=== PATIENT | male | born 1960 | race Caucasian/White ===

== ENCOUNTER → 2017-09-02 | Day surgery (SDC) | payer OTHER ==
[~2017-09-02] MED LIST: CELEBREX100 MG PO; FENTANYL CITRATE/PF 100MCG/2 ML INJ ONE; MIDAZOLAM HCL 2 MG/2 ML VIAL ONE; OR PHACO EYE KIT ONE; PREOP PHACO EYE KIT ONE
== END | disposition home or self-care (01) ==
LOC: OR 10:46
PROVIDERS: ATTEND Ophthalmology
DX: H25.12 Age-related nuclear cataract, left eye (principal); M19.90 Unspecified osteoarthritis, unspecified site; K21.9 Gastro-esophageal reflux disease without esophagitis
CPT/HCPCS: 66984; J2250

== ENCOUNTER → 2018-02-12 | Day surgery (SDC) | payer OTHER ==
[~2018-02-12] MED LIST changes: +GLUCAGON FOR INJ 1 MG VIAL ONE; +KETAMINE HCL INJ 50 MG/ML 10 ML VIAL ONE; +LIDOCAINE HCL 2% LOCAL INJ 5 ML SDV VIAL INJ ONE; +NEXIUM20 MG PO; -OR PHACO EYE KIT ONE; -PREOP PHACO EYE KIT ONE; +PROPOFOL IV EMULSION 10 MG/ML 50 ML VIAL ONE; +TESTOSTERO100 MG/1 M INJ
--- NOTE | 2018-02-12 14:32 | Operative Report ---
DATE OF PROCEDURE: February 12, 2018 REFERRING PHYSICIAN: Dr. Tien Gonzalez. PROCEDURE PERFORMED: Esophagogastroduodenoscopy with biopsies and colonoscopy with biopsies. INDICATIONS FOR ESOPHAGOGASTRODUODENOSCOPY: History of heartburn, indigestion. INDICATIONS FOR COLONOSCOPY: Colorectal cancer screening. MEDICATION: Patient was done under MAC. Please see anesthesiologist's note. PROCEDURE: Patient in left lateral decubitus position. Flexible fiberoptic Olympus gastroscope was introduced into the esophagus under direct visualization without any difficulty. There were some patchy erythema noted in distal esophagus. Minute tongues of velvety red mucosa were noted to extend proximally from the GE junction. Biopsies were obtained to rule out Nathan's. The scope was then advanced with ease into the stomach. Mucosa overlying the antrum and the body reveals a patchy erythema and [id number] edema. Biopsies were obtained and sent to stain for H. pylori. The pylorus was of normal contour and shape, was intubated with ease and the scope was advanced all the way to the second portion of the duodenum. The scope was then withdrawn slowly. Mucosa overlying the proximal second portion and the duodenal bulb appeared to be within normal limits. The scope was then withdrawn back into the stomach in retroflexion. Mucosa overlying the fundus and the cardia appeared to be within normal limits. The scope was then withdrawn back into the stomach and retroflexion mucosa overlying the fundus appeared to be within normal limits. A minute nodule was noted in the cardia that was biopsied. The scope was then straightened out. Stomach was decompressed. Scope was subsequently withdrawn. Patient tolerated the procedure well. IMPRESSION 1. Distal esophagitis. 2. Rule out Nathan's esophagus. 3. Nodule, cardia, biopsied. 4. Gastritis biopsied. Biopsies sent to stain for Helicobacter pylori. PLAN: Follow up histology. Initiate Protonix 40 mg 1 p.o. q.a.m. a.c. Patient was then turned around. After adequate lubrication of the anal canal, flexible fiberoptic Olympus colonoscope was inserted into the rectum with ease and advanced all the way to the cecum. Mucosa overlying the cecum appeared to be within normal limits. The ileocecal valve was intubated and the scope was advanced into the terminal ileum. The terminal ileum was ulcerated and biopsies were obtained. Also, an approximately 3 to 4 mm nodule was noted just proximal to the ileocecal valve and that was biopsied. The scope was then withdrawn back into the colon. It was then withdrawn slowly. Mucosa overlying the ascending and the transverse grossly appeared to be within normal limits. There were some patchy inflammatory changes noted in the left colon. Random biopsies were obtained. The scope was then retroflexed into the distal rectum. Small internal hemorrhoids were noted, none of which was actively bleeding. The scope was then straightened out. It was subsequently withdrawn. Patient tolerated procedure well. IMPRESSION 1. Ulcerated terminal ileum, biopsied. 2. Nodule, terminal ileum, biopsied. 3. Mild patchy left-sided colitis. 4. Small internal hemorrhoids, none actively bleeding. PLAN: Follow up histology. Check IBD panel. Check CRP and check sed rate. Job#: [id number] BRIAN cc:DR. TIEN GONZALEZ
== END | disposition home or self-care (01) ==
LOC: OR 08:43
PROVIDERS: ATTEND Internal Medicine Gastroenterology
DX: Z12.11 Encounter for screening for malignant neoplasm of colon (principal); K29.50 Unspecified chronic gastritis without bleeding; K51.50 Left sided colitis without complications; K21.0 Gastro-esophageal reflux disease with esophagitis; K31.89 Other diseases of stomach and duodenum; K22.8 Other specified diseases of esophagus; K64.8 Other hemorrhoids; K63.89 Other specified diseases of intestine; L40.50 Arthropathic psoriasis, unspecified; R03.0 Elevated blood-pressure reading, without diagnosis of hypertension; E34.9 Endocrine disorder, unspecified; Z01.810 Encounter for preprocedural cardiovascular examination; Z68.32 Body mass index [BMI] 32.0-32.9, adult; Z86.711 Personal history of pulmonary embolism; Z96.643 Presence of artificial hip joint, bilateral
CPT/HCPCS: 36415; 43239; 45380; 85651; 86140; 86256; 86671; 93005; J1610; J2001; J2250; 45378

== ENCOUNTER → 2021-04-12 | Day surgery (SDC) | payer OTHER ==
[~2021-04-12] MED LIST changes: +BENICAR20 MG PO; +BUPIVACAINE 0.25% 30ML SDV ONE; -FENTANYL CITRATE/PF 100MCG/2 ML INJ ONE; -GLUCAGON FOR INJ 1 MG VIAL ONE; -KETAMINE HCL INJ 50 MG/ML 10 ML VIAL ONE; +LIDOCAINE 1% W/EPINEPHRINE 20 ML VIAL ONE; +LIDOCAINE HCL 2% JELLY 5 ML TUBE ONE; -LIDOCAINE HCL 2% LOCAL INJ 5 ML SDV VIAL INJ ONE; -MIDAZOLAM HCL 2 MG/2 ML VIAL ONE; +PANTOPRAZOLE SO40 MG PO; -PROPOFOL IV EMULSION 10 MG/ML 50 ML VIAL ONE
[2021-04-12 13:50] VITALS: BP 127/71
== END | disposition home or self-care (01) ==
LOC: OR 08:24
PROVIDERS: ATTEND Surgery
DX: K60.5 Anorectal fistula (principal); I10 Essential (primary) hypertension
CPT/HCPCS: 46270; J2001

== ENCOUNTER 2022-03-01 08:56 | Emergency (ER) | payer BC, OTHER ==
[~2022-03-01] VITALS: Ht 180.3 cm; Wt 108.9 kg
[~2022-03-01 08:56] MED LIST changes: -BUPIVACAINE 0.25% 30ML SDV ONE; -LIDOCAINE 1% W/EPINEPHRINE 20 ML VIAL ONE; -LIDOCAINE HCL 2% JELLY 5 ML TUBE ONE
[2022-03-01] MEDS ORDERED: ONDANSETRON HCL INJ 2MG/ML 2ML 2 MG/ML VIAL IV STA (09:10)
[2022-03-01] MEDS ORDERED: SODIUM CHLORIDE FLUSH 10 ML SYR IV PRN (09:15)
[2022-03-01 09:20] LABS: BASOPHILS % 0.5 % (0.0-1.0); EOSINOPHILS # (AUTO) 0.1 (0.0-0.4); EOSINOPHILS % 0.7 % (0.0-6.0); HEMATOCRIT 42.1 % (38.2-49.6); HEMOGLOBIN 13.7 g/dL (14.0-18.0); LYMPHOCYTES # (AUTO) 0.7 (1.0-3.2); LYMPHOCYTES % 9.7 % (18.0-39.1); MEAN CORPUSCULAR HEMOGLOBIN 29.5 pg (28-32); MEAN CORPUSCULAR HGB CONC 32.5 g/dL (31-35); MEAN CORPUSCULAR VOLUME 90.7 fL (81-99); MONOCYTES # (AUTO) 0.6 (0.2-0.8); MONOCYTES % 8.6 % (4.4-11.3); NEUTROPHILS % 80.1 % (38.7-80.0); PLATELET COUNT 222 x10e3/uL (140-360); RED BLOOD COUNT 4.64 x10e6/uL (4.3-5.7); RED CELL DISTRIBUTION WIDTH 12.6 % (11.7-14.4)
[2022-03-01 09:46] LABS: ALBUMIN 3.9 g/dL (3.5-5.0); ALBUMIN/GLOBULIN RATIO 1.1 (0.8-2.0); ANION GAP 14.3 mmol/L (8-16); CALCIUM 9.4 mg/dL (8.4-10.2); CREATININE, SERUM 1.28 mg/dL (0.72-1.25); POTASSIUM 4.3 mmol/L (3.5-5.1)
[2022-03-01] MEDS ORDERED: SODIUM CHLORIDE 0.9% 1000ML 1,000 ML IV ONE (10:15)
[2022-03-01] MEDS ORDERED: ALTEPLASE 50 MG/VIAL (29 MILLION IU) IV ONE ×2 (10:15)
[2022-03-01] MEDS ORDERED: IOPAMIDOL 370 MG/ML 100 ML INFUS..BTL INJ ONE (11:45)
[2022-03-01] MEDS ORDERED: SODIUM CHLORIDE 0.9% 100 ML ONE ×2 (11:45→11:52)
[2022-03-01 12:03] LABS: INR 0.88; PROTHROMBIN TIME 12.8 seconds (11.9-14.5)
[2022-03-01 12:04] LABS: PARTIAL THROMBOPLASTIN TIME 27.3 seconds (23.8-35.5)
[2022-03-01 12:43] VITALS: BP 174/77
== END 2022-03-01 12:46 | disposition other institution (70) ==
LOC: ER 09:10
DX: R55 Syncope and collapse (principal); I63.9 Cerebral infarction, unspecified; S80.812A Abrasion, left lower leg, initial encounter; W01.0XXA Fall on same level from slipping, tripping and stumbling without subsequent striking against object, initial encounter; Y93.01 Activity, walking, marching and hiking; Y92.89 Other specified places as the place of occurrence of the external cause; I10 Essential (primary) hypertension; K21.9 Gastro-esophageal reflux disease without esophagitis; Z20.822 Contact with and (suspected) exposure to COVID-19; R94.31 Abnormal electrocardiogram [ECG] [EKG]; Z96.643 Presence of artificial hip joint, bilateral
CPT/HCPCS: 36415; 70450; 70496; 70498; 71045; 71275; 80053; 82948; 84484; 85025; 85379; 85610; 85730; 93005; 94760; 99284; J2405; J7030; J7050; Q9967; U0002

== ENCOUNTER → 2023-04-17 | Day surgery (SDC) | payer BC ==
[2023-04-14 15:54] LABS: BASOPHILS % 0.4 % (0.0-1.0); EOSINOPHILS # (AUTO) 0.1 (0.0-0.4); EOSINOPHILS % 1.5 % (0.0-6.0); HEMATOCRIT 37.9 % (38.2-49.6); LYMPHOCYTES # (AUTO) 0.8 (1.0-3.2); LYMPHOCYTES % 14.4 % (18.0-39.1); MEAN CORPUSCULAR HEMOGLOBIN 30.2 pg (28-32); MEAN CORPUSCULAR HGB CONC 34.3 g/dL (31-35); MEAN CORPUSCULAR VOLUME 87.9 fL (81-99); MONOCYTES # (AUTO) 0.5 (0.2-0.8); MONOCYTES % 9.4 % (4.4-11.3); NEUTROPHILS # (AUTO) 3.9 (2.1-6.9); NEUTROPHILS % 73.7 % (38.7-80.0); PLATELET COUNT 220 x10e3/uL (140-360); RED BLOOD COUNT 4.31 x10e6/uL (4.3-5.7); RED CELL DISTRIBUTION WIDTH 11.9 % (11.7-14.4); WHITE BLOOD COUNT 5.33 x10e3/uL (4.8-10.8)
[~2023-04-17] MED LIST changes: +ATORVASTATIN CA20 MG PO; +ELIQUIS5 MG PO; +FUROSEMIDE40 MG PO; +L-LYSINE500 M2 PO; +LACTATED RINGER'S 1,000 ML ONE; +MAGNESIUM GLYC100 MG PO; +METOCLOPRAMIDE HCL 10 MG/2ML VIAL ONE; +NUVIGIL150 MG PO; +ONDANSETRON HCL INJ 2MG/ML 2ML 2 MG/ML VIAL ONE; +ONDANSETRON ODT4 MG PO; +VITAMIN B COMP1 EACH; +VITAMIN C1000 MG PO; +[UNRECOGNIZED DRUG - OTHER]
== END | disposition home or self-care (01) ==
LOC: OR 06:27
PROVIDERS: ATTEND Internal Medicine Gastroenterology
DX: Z12.11 Encounter for screening for malignant neoplasm of colon (principal); R11.2 Nausea with vomiting, unspecified; Z53.09 Procedure and treatment not carried out because of other contraindication; Z01.812 Encounter for preprocedural laboratory examination
CPT/HCPCS: 36415; 85025; J2405; J2765; J7121

== ENCOUNTER 2024-02-23 07:54 | Observation (INO) | payer BC ==
[2024-02-23] VITALS (7 sets, daily range): BP systolic 122–142; BP diastolic 66–75; PULSE 63–72; RESP 16–20; TEMP 98.1–98.6; O2SAT 96–99
[~2024-02-23] VITALS: Ht 180.3 cm; Wt 108.9 kg
[~2024-02-23 07:54] MED LIST changes: -LACTATED RINGER'S 1,000 ML ONE; -METOCLOPRAMIDE HCL 10 MG/2ML VIAL ONE; -ONDANSETRON HCL INJ 2MG/ML 2ML 2 MG/ML VIAL ONE
[2024-02-23] MEDS: SODIUM CHLORIDE 0.9% 1000ML 1,000 ML IV STA (08:18)
[2024-02-23 08:23] LABS: BASOPHILS % 0.2 % (0.0-1.0); EOSINOPHILS % 0.3 % (0.0-6.0); HEMATOCRIT 37.2 % (38.2-49.6); HEMOGLOBIN 12.3 g/dL (14.0-18.0); LYMPHOCYTES # (AUTO) 0.6 (1.0-3.2); LYMPHOCYTES % 6.7 % (18.0-39.1); MEAN CORPUSCULAR HEMOGLOBIN 30.4 pg (28-32); MEAN CORPUSCULAR HGB CONC 33.1 g/dL (31-35); MEAN CORPUSCULAR VOLUME 91.9 fL (81-99); MONOCYTES # (AUTO) 0.6 (0.2-0.8); MONOCYTES % 6.3 % (4.4-11.3); NEUTROPHILS # (AUTO) 7.7 (2.1-6.9); NEUTROPHILS % 86.3 % (38.7-80.0); PLATELET COUNT 238 x10e3/uL (140-360); RED BLOOD COUNT 4.05 x10e6/uL (4.3-5.7)
[2024-02-23 08:39] LABS: INR 0.9; PROTHROMBIN TIME 12.6 seconds (11.9-14.5)
[2024-02-23 08:40] LABS: ALANINE AMINOTRANSFERASE 18 IU/L (0-55); ALBUMIN 3.8 g/dL (3.5-5.0); ALBUMIN/GLOBULIN RATIO 1.1 (0.8-2.0); ALKALINE PHOSPHATASE 88 IU/L (40-150); ANION GAP 14.5 mmol/L (8-16); BILIRUBIN,TOTAL 0.4 mg/dL (0.2-1.2); BLOOD UREA NITROGEN 26 mg/dL (7-26); BUN/CREATININE RATIO 19 (6-25); CALCIUM 9.6 mg/dL (8.4-10.2); CARBON DIOXIDE 25 mmol/L (22-29); CHLORIDE 104 mmol/L (98-107); CREATINE KINASE 49 IU/L (30-200); CREATININE, SERUM 1.36 mg/dL (0.72-1.25); EST GLOMERULAR FILTRATION RATE 58 ML/MIN (>=60); GLUCOSE 116 mg/dL (74-118); MAGNESIUM 1.9 MG/DL (1.3-2.1); PARTIAL THROMBOPLASTIN TIME 25.8 seconds (23.8-35.5); POTASSIUM 4.5 mmol/L (3.5-5.1); SODIUM 139 mmol/L (136-145); TOTAL PROTEIN 7.2 g/dL (6.5-8.1)
[2024-02-23] MEDS ORDERED: ONDANSETRON HCL INJ 2MG/ML 2ML 2 MG/ML VIAL IV PRN (09:15)
[2024-02-23 09:16] LABS: TROPONIN I < 0.05 ng/mL (0.0-0.40)
[2024-02-23] MEDS: ACETAMINOPHEN 325 MG TAB PO ONE (09:16)
[2024-02-23] MEDS: FAMOTIDINE 20 MG/2 ML VIAL IV SCH (10:09)
[2024-02-23 11:21] LABS: BILIRUBIN,URINE NEGATIVE (NEGATIVE); CLARITY,URINE CLEAR (CLEAR); COLOR,URINE YELLOW (YELLOW); GLUCOSE, URINE NEGATIVE (NEGATIVE); KETONES,URINE NEGATIVE (NEGATIVE); LEUKOCYTE ESTERASE ,URINE NEGATIVE (NEGATIVE); NITRITE,URINE NEGATIVE (NEGATIVE); PH,URINE 7 (5 - 7); PROTEIN,URINE DIPSTICK NEGATIVE (NEGATIVE); URINE UROBILINOGEN 0.2 mg/dL (0.2 - 1)
[2024-02-23 11:51] LABS: BACTERIA,URINE FEW /HPF; EPITHELIAL CELLS,URINE RARE /LPF; RBC,URINE 0-5 /HPF (0-5); WBC,URINE (MAN) 0-5 /HPF (0-5)
[2024-02-23 15:49] LABS: TROPONIN I 0.001 ng/mL (0-0.300)
[2024-02-23] MEDS: APIXABAN 5 MG TABLET PO SCH (17:35)
[2024-02-23] MEDS: SODIUM CHLORIDE 0.9% 1000ML 1,000 ML IV ONE (17:37)
[2024-02-23] MEDS: ATORVASTATIN 40 MG TAB PO SCH (21:13)
[2024-02-23] MEDS: ACETAMINOPHEN 325 MG TAB PO PRN (21:13)
[2024-02-24] VITALS: BP 139/81; PULSE 71; RESP 20; TEMP 98.6; O2SAT 100
[2024-02-24 04:00] VITALS: BP 148/78; PULSE 76; RESP 20; TEMP 98.1; O2SAT 98
[2024-02-24 05:39] LABS: BASOPHILS % 0.2 % (0.0-1.0); EOSINOPHILS # (AUTO) 0.1 (0.0-0.4); EOSINOPHILS % 1.3 % (0.0-6.0); HEMATOCRIT 36.2 % (38.2-49.6); HEMOGLOBIN 11.6 g/dL (14.0-18.0); LYMPHOCYTES # (AUTO) 0.6 (1.0-3.2); LYMPHOCYTES % 10.5 % (18.0-39.1); MEAN CORPUSCULAR HEMOGLOBIN 29.9 pg (28-32); MEAN CORPUSCULAR VOLUME 93.3 fL (81-99); MONOCYTES # (AUTO) 0.6 (0.2-0.8); MONOCYTES % 10.2 % (4.4-11.3); NEUTROPHILS # (AUTO) 4.3 (2.1-6.9); NEUTROPHILS % 77.3 % (38.7-80.0); PLATELET COUNT 193 x10e3/uL (140-360); RED BLOOD COUNT 3.88 x10e6/uL (4.3-5.7); RED CELL DISTRIBUTION WIDTH 12.9 % (11.7-14.4)
[2024-02-24 06:03] LABS: ALBUMIN 3.5 g/dL (3.5-5.0); ALBUMIN/GLOBULIN RATIO 1.2 (0.8-2.0); ANION GAP 9.9 mmol/L (8-16); BILIRUBIN,TOTAL 0.6 mg/dL (0.2-1.2); CALCIUM 9.7 mg/dL (8.4-10.2); CHOL/HDL RATIO 4.6 (3.9-4.7); CREATININE, SERUM 1.2 mg/dL (0.72-1.25); POTASSIUM 3.9 mmol/L (3.5-5.1); TOTAL PROTEIN 6.4 g/dL (6.5-8.1)
[2024-02-24 06:27] LABS: TROPONIN I 0.012 ng/mL (0-0.300)
[2024-02-24 08:21] VITALS: BP 153/92; PULSE 70; RESP 19; TEMP 98.1; O2SAT 100
[2024-02-24 08:48] VITALS: BP 153/92; PULSE 70; RESP 19; TEMP 98.1; O2SAT 100
[2024-02-24] MEDS: PANTOPRAZOLE SOD 40 MG TABEC PO SCH (09:10)
[2024-02-24 12:33] VITALS: BP 137/69; PULSE 65; RESP 19; TEMP 98.1; O2SAT 95
== END 2024-02-24 15:21 | disposition home or self-care (01) ==
LOC: ER 08:01 → ERHOLD 09:06 → MED/SURG3 10:20
PROVIDERS: ADMIT Family Medicine Adult Medicine; ATTEND Family Medicine Adult Medicine
DX: R55 Syncope and collapse (principal); N17.9 Acute kidney failure, unspecified; Z86.73 Personal history of transient ischemic attack (TIA), and cerebral infarction without residual deficits; Z86.718 Personal history of other venous thrombosis and embolism; Z79.01 Long term (current) use of anticoagulants; Z85.46 Personal history of malignant neoplasm of prostate; E66.9 Obesity, unspecified; Z68.33 Body mass index [BMI] 33.0-33.9, adult
CPT/HCPCS: 36415 ×2; 70450; 71045; 72125; 80053 ×2; 80061; 81001; 82550 ×2; 83735; 83880; 84443; 84484 ×2; 85025 ×2; 85610; 85730; 93005; 93306; 93880; 97161; 99284; G0378 ×2; J7030; S0164